=== PATIENT | female | born 1970 | race Caucasian/White ===

== ENCOUNTER 2018-09-21 10:09 | Emergency (ER) | payer SELFPAY ==
[2018-09-21] MEDS ORDERED: Lidocaine 1% (PF) 30 ML VIAL ONE (10:23)
[2018-09-21] MEDS ORDERED: Adacel (T-DAP) 0.5 ML SYRINGE ONE ×2 (11:21→11:38)
[2018-09-21] MEDS ORDERED: Ondansetron PF 4 MG/2 ML Vial ONE (11:38)
[2018-09-21] MEDS ORDERED: Ondansetron ODT 4 MG TAB ONE (11:39)
== END 2018-09-21 12:40 | disposition home or self-care (01) ==
LOC: ERS 10:09
DX: N75.0 Cyst of Bartholin's gland (principal); E03.9 Hypothyroidism, unspecified; J45.909 Unspecified asthma, uncomplicated; G43.909 Migraine, unspecified, not intractable, without status migrainosus; Z79.899 Other long term (current) drug therapy
CPT/HCPCS: 56420; 90471; 90715; J2001; J2405; Q0162

== ENCOUNTER 2021-09-13 21:07 | Emergency (ER) | payer SELFPAY | END 2021-09-13 22:25 | disposition home or self-care (01) | LOC: ERS 21:07 | DX: H10.9 Unspecified conjunctivitis (principal); E03.9 Hypothyroidism, unspecified; J45.909 Unspecified asthma, uncomplicated; G43.909 Migraine, unspecified, not intractable, without status migrainosus | CPT/HCPCS: 99283 ==